=== PATIENT | male | born 1970 | race African-American/Black ===

== ENCOUNTER 2024-07-18 20:21 | Inpatient (IN) | payer BC, OTHER ==
[~2024-07-18] VITALS: Ht 152.4 cm; Wt 49.5 kg
[2024-07-18 21:22] LABS: DIFFERENTIAL COMMENT 1; HEMATOCRIT. 32.4 % (42.0-52.0); HEMOGLOBIN. 10.5 g/dL (14.0-18.0); MEAN CORPUSCULAR HEMOGLOBIN 29.1 pg (28.0-32.0); MEAN CORPUSCULAR HGB CONC 32.4 g/dL (31.0-37.0); MEAN CORPUSCULAR VOLUME 89.7 fL (80.0-94.0); MEAN PLATELET VOLUME 8.5 fl (7.4-10.4); PLATELET 300 x1000/uL (130-400); RED BLOOD CELL COUNT 3.61 mill/uL (4.7-6.1); RED CELL DISTRIBUTION WIDTH 16.4 % (11.6-14.6); WHITE BLOOD COUNT 24.8 x1000/uL (4.5-11.0)
[2024-07-18 21:28] LABS: CARBON DIOXIDE 27 mEq/L (21-32); CHLORIDE 97 mEq/L (98-107); POTASSIUM 3.2 mEq/L (3.5-5.1); SODIUM 132 mEq/L (136-145)
[2024-07-18 21:29] LABS: CALCIUM 11.1 mg/dL (8.7-10.4)
[2024-07-18 21:30] LABS: INR 1.1; PROTHROMBIN TIME 12.2 sec (9.6-11.0)
[2024-07-18 21:33] LABS: CREATININE 1.2 mg/dL (0.6-1.3)
[2024-07-18 21:34] LABS: GLUCOSE 85 mg/dL (70-105); UREA NITROGEN BLOOD 39 mg/dL (9-23)
[2024-07-18 21:35] LABS: ALANINE AMINOTRANSFERASE < 7 IU/L (10-49); TROPONIN I HIGH SENSITIVITY 4 ng/L (3.0-53)
[2024-07-18 21:36] LABS: ALBUMIN 3.7 g/dL (3.2-4.8); ASPARTATE AMINOTRANSFERASE 28 IU/L (<34); BILIRUBIN DIRECT 1.5 mg/dL (<=3.0); BILIRUBIN TOTAL 2.5 mg/dL (0.1-1.0); PROTEIN TOTAL 6.8 g/dL (6.0-8.3)
[2024-07-18 21:58] LABS: PLATELET ESTIMATE NORMAL
[2024-07-18] MEDS: VANCOMYCIN 1G PREMIX 200 ML IV NR (23:15)
[2024-07-18] MEDS: PIPERACILLIN/TAZO 3.375G/50ML 50 ML IV NR (23:15)
[2024-07-18] MEDS: KCL 20MEQ/100ML PREMIX 100 ML IV NR (23:15)
[2024-07-18] MEDS: SODIUM CHLORIDE 0.9% 1000ML BAG (SEPSIS BOLUS) IV NR (23:15)
[2024-07-19] MEDS ORDERED: DIPHENHYDRAMINE 50MG/ML VIAL IV PRN (01:15)
[2024-07-19] MEDS ORDERED: ONDANSETRON HCL 4MG/2ML INJ IV PRN (01:15)
[2024-07-19] MEDS ORDERED: DOCUSATE SODIUM 100MG CAPSULE PO PRN (01:15)
[2024-07-19] MEDS ORDERED: CLONIDINE 0.1MG TABLET PO PRN (01:15)
[2024-07-19] MEDS ORDERED: IPRATROPIUM/ALBUTEROL 0.5-3(2.5)MG/3ML NEB HHN PRN (01:15)
[2024-07-19] MEDS ORDERED: ACETAMINOPHEN 325MG TABLET PO PRN (01:15)
[2024-07-19] MEDS ORDERED: GUAIFENESIN 200MG/10ML SUGAR FREE UDC PO PRN (01:15)
[2024-07-19] MEDS ORDERED: MAGNESIUM/ALUMINUM HYDROXIDE/SIMETHICONE 30ML UDC PO PRN (01:15)
[2024-07-19] MEDS: DEXTROSE 50% WATER 50ML SYRINGE IV NR ×2 (01:36→07:55)
[2024-07-19] MEDS: DEXTROSE 50% WATER 50ML SYRINGE IV PRN (02:00)
[2024-07-19] MEDS ORDERED: PRED-431 MT (02:14)
[2024-07-19] MEDS ORDERED: MYCO250C PO (02:14)
[2024-07-19] MEDS ORDERED: PRED1TAB3 MT (02:14)
[2024-07-19] MEDS ORDERED: TACR0.5C4 PO (02:18)
[2024-07-19] MEDS ORDERED: SITA100T11 MT (02:18)
[2024-07-19] MEDS ORDERED: VALG450T15 PO (02:18)
[2024-07-19 02:27] LABS: TROPONIN I HIGH SENSITIVITY 5 ng/L (3.0-53)
[2024-07-19 02:45] VITALS: BP 130/82; PULSE 125; RESP 22; TEMP 36.7516
[2024-07-19 04:00] VITALS: BP 106/66; PULSE 107; RESP 19; TEMP 37.28076; O2SAT 98
[2024-07-19] MEDS: TACROLIMUS 0.5 MG CAPSULE PO SCH ×3 (05:00→21:40)
[2024-07-19] MEDS ORDERED: VALACYCLOVIR HCL 500MG TABLET PO SCH (05:00)
[2024-07-19] MEDS: POTASSIUM CHLORIDE 20MEQ/PACKET PO NR (05:00)
[2024-07-19] MEDS: PANTOPRAZOLE SODIUM 40 MG/VIAL IV SCH (05:30)
[2024-07-19 08:00] VITALS: BP 117/63; PULSE 101; RESP 18; TEMP 36.89184; O2SAT 99
[2024-07-19] MEDS: DEXT 5%/0.9% NACL 1,000 ML IV SCH (08:03)
[2024-07-19 08:04] LABS: CREATINE KINASE MB FRACTION < 0.5 ng/mL (0.5-3.6); TROPONIN I HIGH SENSITIVITY 5 ng/L (3.0-53)
[2024-07-19 08:09] LABS: CREATINE KINASE < 15 IU/L (46-171)
[2024-07-19] MEDS: PREDNISONE 1MG TABLET PO SCH (09:00)
[2024-07-19 12:00] VITALS: BP 90/60; RESP 18; TEMP 36.72516; O2SAT 98
[2024-07-19] MEDS ORDERED: DEXTROSE 50% WATER 50ML SYRINGE IV PRN (12:15)
[2024-07-19 16:00] VITALS: BP 102/71; PULSE 101; RESP 18; TEMP 36.72516; O2SAT 99
[2024-07-19 16:31] LABS: CREATINE KINASE MB FRACTION < 0.5 ng/mL (0.5-3.6)
[2024-07-19 16:40] LABS: CREATINE KINASE < 15 IU/L (46-171); TROPONIN I HIGH SENSITIVITY < 4 ng/L (3.0-53)
[2024-07-19] MEDS: BLOOD SUGAR DIAGNOSTIC STRIP TEST SCH (16:40)
[2024-07-19 16:46] LABS: HEPATITIS B SURFACE ANTIGEN NEGATIVE (Negative)
[2024-07-19] MEDS: VALGANCICLOVIR HYDROCHLORIDE 450MG TABLET PO SCH (17:00)
[2024-07-19 17:07] LABS: HEPATITIS A AB IGM NEGATIVE (Negative)
[2024-07-19 17:08] LABS: HEPATITIS B CORE AB IGM NEGATIVE (Negative); HEPATITIS C AB NON REACTIVE (Neg) (Negative)
[2024-07-19] MEDS: INSULIN LISPRO 100 UNITS/ML SUBCUT SCH (17:10)
[2024-07-19 17:59] LABS: HEMATOCRIT. 26.5 % (42.0-52.0); HEMOGLOBIN. 8.7 g/dL (14.0-18.0); MEAN CORPUSCULAR HEMOGLOBIN 29.4 pg (28.0-32.0); MEAN CORPUSCULAR HGB CONC 32.8 g/dL (31.0-37.0); MEAN CORPUSCULAR VOLUME 89.6 fL (80.0-94.0); MEAN PLATELET VOLUME 8.2 fl (7.4-10.4); PLATELET 264 x1000/uL (130-400); RED BLOOD CELL COUNT 2.95 mill/uL (4.7-6.1); RED CELL DISTRIBUTION WIDTH 16.1 % (11.6-14.6); WHITE BLOOD COUNT 29.4 x1000/uL (4.5-11.0)
[2024-07-19 18:00] LABS: DIFFERENTIAL COMMENT 1
[2024-07-19 18:03] LABS: CHLORIDE 99 mEq/L (98-107); POTASSIUM 3.8 mEq/L (3.5-5.1); SODIUM 130 mEq/L (136-145)
[2024-07-19 18:04] LABS: CALCIUM 10.6 mg/dL (8.7-10.4); CARBON DIOXIDE 26 mEq/L (21-32)
[2024-07-19 18:09] LABS: CREATININE 1.3 mg/dL (0.6-1.3); GLUCOSE 178 mg/dL (70-105); UREA NITROGEN BLOOD 42 mg/dL (9-23)
[2024-07-19 18:11] LABS: ALANINE AMINOTRANSFERASE < 7 IU/L (10-49); ALBUMIN 3.1 g/dL (3.2-4.8); ASPARTATE AMINOTRANSFERASE 19 IU/L (<34); BILIRUBIN TOTAL 2.8 mg/dL (0.1-1.0); PROTEIN TOTAL 5.7 g/dL (6.0-8.3)
[2024-07-19 18:20] LABS: ANISOCYTOSIS 1+; PLATELET ESTIMATE NORMAL
[2024-07-19] MEDS: ENOXAPARIN 60MG/0.6ML SYR SUBCUT SCH (19:13)
[2024-07-19 20:00] VITALS: BP 107/71; PULSE 91; RESP 19; TEMP 37.00296; O2SAT 98
[2024-07-19] MEDS: MYCOPHENOLATE MOFETIL 500MG TABLET PO SCH (20:00)
[2024-07-20] VITALS: BP 95/64; PULSE 97; RESP 19; TEMP 37.2252; O2SAT 97
[2024-07-20 04:00] VITALS: BP 111/73; PULSE 109; RESP 19; TEMP 38.72532; O2SAT 97
[2024-07-20] MEDS: ACETAMINOPHEN 325MG TABLET PO PRN (05:04)
[2024-07-20 06:13] LABS: CHLORIDE 98 mEq/L (98-107); POTASSIUM 3.4 mEq/L (3.5-5.1); SODIUM 132 mEq/L (136-145)
[2024-07-20 06:14] LABS: CARBON DIOXIDE 26 mEq/L (21-32)
[2024-07-20 06:15] LABS: CALCIUM 11.2 mg/dL (8.7-10.4)
[2024-07-20 06:19] LABS: CREATININE 1.4 mg/dL (0.6-1.3); GLUCOSE 196 mg/dL (70-105)
[2024-07-20 06:20] LABS: LDL CHOLESTEROL 78 mg/dL (5-100); TRIGLYCERIDE 367 mg/dL (0-150); UREA NITROGEN BLOOD 47 mg/dL (9-23)
[2024-07-20 06:22] LABS: CHOLESTEROL 177 mg/dL (<200); HDL CHOLESTEROL < 20 mg/dL (>55)
[2024-07-20 06:24] LABS: T4 FREE 1.39 ng/dL (0.89-1.76); THYROID STIMULATING HORMONE < 0.10 uIU/mL (0.55-4.78)
[2024-07-20 06:26] LABS: HEMATOCRIT. 28.3 % (42.0-52.0); HEMOGLOBIN. 9.3 g/dL (14.0-18.0); MEAN CORPUSCULAR HEMOGLOBIN 29.4 pg (28.0-32.0); MEAN CORPUSCULAR HGB CONC 32.8 g/dL (31.0-37.0); MEAN CORPUSCULAR VOLUME 89.4 fL (80.0-94.0); MEAN PLATELET VOLUME 8.7 fl (7.4-10.4); PLATELET 337 x1000/uL (130-400); RED BLOOD CELL COUNT 3.17 mill/uL (4.7-6.1); RED CELL DISTRIBUTION WIDTH 16.3 % (11.6-14.6); WHITE BLOOD COUNT 23.2 x1000/uL (4.5-11.0)
[2024-07-20 07:08] LABS: DIFFERENTIAL COMMENT 1
[2024-07-20 08:18] VITALS: BP 96/67; PULSE 108; RESP 18; TEMP 37.55856; O2SAT 96
[2024-07-20] MEDS ORDERED: VALGANCICLOVIR HYDROCHLORIDE 450MG TABLET PO SCH (09:00)
[2024-07-20] MEDS: POTASSIUM CHLORIDE 20MEQ TABLET SR PO NR (09:51)
[2024-07-20 10:34] LABS: ANISOCYTOSIS 1+; PLATELET ESTIMATE NORMAL
[2024-07-20 12:00] VITALS: BP 90/56; PULSE 97; RESP 18; TEMP 36.78072; O2SAT 97
[2024-07-20 16:00] VITALS: BP 108/68; PULSE 93; RESP 18; TEMP 36.44736; O2SAT 97
[2024-07-20 17:17] LABS: CREATINE KINASE MB FRACTION < 0.5 ng/mL (0.5-3.6)
[2024-07-20 17:28] LABS: CREATINE KINASE < 15 IU/L (46-171); TROPONIN I HIGH SENSITIVITY < 4 ng/L (3.0-53)
[2024-07-20 20:00] VITALS: BP 115/70; PULSE 98; RESP 20; TEMP 37.11408; O2SAT 98
[2024-07-20 23:55] LABS: CREATINE KINASE MB FRACTION < 0.5 ng/mL (0.5-3.6)
[2024-07-21] VITALS: BP 105/52; PULSE 107; RESP 19; TEMP 36.72516; O2SAT 96
[2024-07-21 00:36] LABS: CREATINE KINASE < 15 IU/L (46-171); TROPONIN I HIGH SENSITIVITY < 4 ng/L (3.0-53)
[2024-07-21 04:00] VITALS: BP 97/61; PULSE 103; RESP 19; TEMP 36.89184; O2SAT 97
[2024-07-21] MEDS: LEVOTHYROXINE SODIUM 125MCG TABLET PO SCH (06:01)
[2024-07-21 08:00] VITALS: BP 107/67; PULSE 103; RESP 17; TEMP 37.16964; O2SAT 97
[2024-07-21 09:44] LABS: CREATINE KINASE MB FRACTION < 0.5 ng/mL (0.5-3.6)
[2024-07-21 09:58] LABS: CREATINE KINASE < 15 IU/L (46-171); TROPONIN I HIGH SENSITIVITY < 4 ng/L (3.0-53)
[2024-07-21 12:00] VITALS: BP 107/64; PULSE 101; RESP 18; TEMP 36.78072; O2SAT 97
[2024-07-21 16:00] VITALS: BP 121/76; PULSE 97; RESP 18; TEMP 37.00296; O2SAT 97; O2SAT 98
[2024-07-21 18:49] LABS: POTASSIUM 4.1 mEq/L (3.5-5.1)
[2024-07-21 22:44] VITALS: BP 146/88; PULSE 105; TEMP 97.5; O2SAT 99
[2024-07-22] MEDS ORDERED: TACROLIMUS 1MG CAPSULE PO SCH (21:00)
[2024-07-24 07:09] LABS: CMV QUANT DNA PCR Negative (Negative)
== END 2024-07-21 22:45 | disposition short-term general hospital (02) | DRG 871 ==
LOC: ER 20:21 → 7EST 23:22
PROVIDERS: ADMIT Internal Medicine; ATTEND Internal Medicine
DX: A41.9 Sepsis, unspecified organism (principal); J18.9 Pneumonia, unspecified organism; I82.432 Acute embolism and thrombosis of left popliteal vein; E87.1 Hypo-osmolality and hyponatremia; G93.40 Encephalopathy, unspecified; I25.811 Atherosclerosis of native coronary artery of transplanted heart without angina pectoris; D84.821 Immunodeficiency due to drugs; E11.649 Type 2 diabetes mellitus with hypoglycemia without coma; E03.9 Hypothyroidism, unspecified; Z95.0 Presence of cardiac pacemaker; D38.1 Neoplasm of uncertain behavior of trachea, bronchus and lung; D64.9 Anemia, unspecified; E05.90 Thyrotoxicosis, unspecified without thyrotoxic crisis or storm; E87.6 Hypokalemia; I11.0 Hypertensive heart disease with heart failure; I50.9 Heart failure, unspecified; M10.9 Gout, unspecified; R91.8 Other nonspecific abnormal finding of lung field; N28.9 Disorder of kidney and ureter, unspecified; Z79.4 Long term (current) use of insulin; Z79.624 Long term (current) use of inhibitors of nucleotide synthesis; Z79.84 Long term (current) use of oral hypoglycemic drugs; Z79.899 Other long term (current) drug therapy
CPT/HCPCS: 36415; 71045; 71250; 74176; 80048; 80053; 80061; 80076; 80197; 82550; 82553; 82962; 83036; 83605; 83880; 84132; 84145; 84439; 84443; 84484; 85025; 86705; 86709; 86713; 87340; 87496; 87497; 87899; 93306; 93970; 97162; 99285; J1650; J1815; J7042; J7507; J7512; J7517